=== PATIENT | female | born 1935 | race Two or more races ===

== ENCOUNTER 2021-09-22 01:22 | Inpatient (IN) | payer OTHER ==
[~2021-09-22] VITALS: Ht 152.4 cm; Wt 50.0 kg
[2021-09-22] MEDS ORDERED: HYDROcodone-ACET 5/325MG TAB PO ONE ×2 (03:45→13:15)
[2021-09-22] MEDS ORDERED: NITROGLYCERIN 0.4 MG SL TAB SL PRN ×2 (14:00→16:00)
[2021-09-22] MEDS ORDERED: MORPHINE SULFATE INJECTION 2 MG/ML SYRG IV PRN ×4 (14:00→16:00)
[2021-09-22] MEDS ORDERED: ONDANSETRON HCL 4 MG/2 ML VIAL IV PRN ×2 (14:00→16:00)
[2021-09-22 14:29] LABS: Basophils # (auto) 0.1 10 ^3/uL (0-0.2); Basophils % (auto) 0.5 % (0.0-2.0); Eosinophils # (auto) 0 10 ^3/uL (0-0.8); Hematocrit 25.4 % (36.0-46.0); Lymphocytes # (auto) 1.6 10 ^3/uL (0.4-5.4); Neutrophils # (auto) 10.4 10 ^3/uL (1.6-8.6)
[2021-09-22 14:30] LABS: Hemoglobin 8.1 g/dL (12.2-16.2); Mean Corpuscular Hemoglobin 22.9 pg (28.0-32.0); Mean Corpuscular Hgb Conc. 32.1 g/dL (32.0-36.0); Mean Corpuscular Volume 71.4 fL (80.0-100.0); Monocytes % (auto) 7.8 % (0.0-12.0); Neutrophils % (auto) 79.7 % (37.0-80.0); Nucleated Red Blood Cells % 0.1 %; Red Blood Cells 3.56 10^6/uL (4.0-5.20); White Blood Cell 13.1 10^3/uL (4.4-10.8)
[2021-09-22 14:55] LABS: BUN/Creatinine Ratio 68.8; Calcium 9.2 mg/dL (8.5-10.1); Potassium 3.4 mmol/L (3.5-5.1)
[2021-09-22 14:58] LABS: Bilirubin, Total 0.2 mg/dL (0.2-1.0); Total Protein 6.3 g/dL (6.4-8.2)
[2021-09-22 15:06] LABS: Magnesium 2.3 mg/dL (1.6-2.6)
[2021-09-22 15:12] LABS: Phosphorus 2.9 mg/dL (2.5-4.90)
[2021-09-22 15:36] LABS: Cholesterol 165 mg/dL (< 200)
[2021-09-22 15:39] LABS: HDL Cholesterol 41 mg/dL (40-59); LDL Cholesterol 93 mg/dL (< 100); Triglycerides 180 mg/dL (< 150)
[2021-09-22] MEDS ORDERED: FAMOTIDINE (10MG/ML) 2ML VL IV ONE (16:00)
[2021-09-22] MEDS ORDERED: METOPROLOL SUCCINATE XL 50 MG TAB PO ONE (16:00)
[2021-09-22] MEDS ORDERED: SODIUM CHLORIDE 0.9% 1,000 ML IV SCH (16:00)
[2021-09-22] MEDS ORDERED: ACETAMINOPHEN 325 MG TAB PO PRN (16:00)
[2021-09-22] MEDS ORDERED: POTASSIUM CHL 10MEQ/50ML 50 ML IV ONE (16:00)
[2021-09-22] MEDS ORDERED: DOCUSATE SOD 100 MG CAP PO PRN (16:00)
[2021-09-22] MEDS ORDERED: HYDROcodone-ACET 5/325MG TAB PO PRN (16:00)
[2021-09-22] MEDS ORDERED: hydrALAZINE HCL 20 MG/ML VL IV PRN ×2 (16:00→16:15)
[2021-09-22] MEDS ORDERED: LORazepam 0.5 MG TAB PO PRN (16:00)
[2021-09-22] MEDS ORDERED: ALUM & MAG HYDROX-SIMETH LIQ(MAALOX) 30 ML PO PRN (16:00)
[2021-09-22] MEDS ORDERED: CARISOPRODOL 350 MG TAB PO ONE (16:00)
[2021-09-22] MEDS ORDERED: IOHEXOL 350 MG/ML 100ML IJ ONE (16:01)
[2021-09-22] MEDS ORDERED: IPRATROPIUM BROM 0.5 MG/2.5ML INH SOL NEB ONE (16:15)
[2021-09-22] MEDS ORDERED: PANTOPRAZOLE 40 MG/10 ML VIAL INJ IV ONE (16:15)
[2021-09-22] MEDS ORDERED: cefTRIAXone 1GM/50ML D5W 50 ML IV ONE (16:15)
[2021-09-22] MEDS ORDERED: IPRATROPIUM BROM 0.5 MG/2.5ML INH SOL NEB PRN (16:15)
[2021-09-22 16:38] LABS: Urine Bacteria MANY /hpf (None Seen); Urine Blood TRACE /uL (Negative); Urine Mucus FEW (None Seen); Urine Specific Gravity 1.024 (1.001-1.035); Urine WBC 27 /hpf (0 - 5)
[2021-09-22] MEDS: CALCIUM W/VIT D (600MG/400IU) TAB PO SCH (18:00)
[2021-09-22 20:00] VITALS: BP 115/65
[2021-09-22] MEDS ORDERED: CARISOPRODOL 350 MG TAB PO PRN (22:00)
[2021-09-22] MEDS ORDERED: FAMOTIDINE (10MG/ML) 2ML VL IV SCH (22:00)
[2021-09-22] MEDS ORDERED: OME20T PO (22:10)
[2021-09-22] MEDS ORDERED: TRAM50TA2 PO (22:10)
[2021-09-22] MEDS ORDERED: ENAL2.5T7 PO (22:10)
[2021-09-22] MEDS ORDERED: [UNRECOGNIZED DRUG - CODE] IJ (22:10)
[2021-09-22 22:36] LABS: % Iron Saturation 3.7 % (15-50)
[2021-09-23 05:17] VITALS: BP 118/63
[2021-09-23 06:48] LABS: Basophils # (auto) 0 10 ^3/uL (0-0.2); Eosinophils # (auto) 0 10 ^3/uL (0-0.8); Monocytes # (auto) 0.9 10 ^3/uL (0-1.3); Red Blood Cells 2.81 10^6/uL (4.0-5.20)
[2021-09-23 06:51] LABS: Basophils % (auto) 0.2 % (0.0-2.0); Hematocrit 20.2 % (36.0-46.0); Lymphocytes # (auto) 1.3 10 ^3/uL (0.4-5.4); Lymphocytes % (auto) 11.5 % (10.0-50.0); Mean Corpuscular Hemoglobin 23.5 pg (28.0-32.0); Mean Corpuscular Hgb Conc. 32.7 g/dL (32.0-36.0); Mean Corpuscular Volume 71.7 fL (80.0-100.0); Monocytes % (auto) 8.1 % (0.0-12.0); Neutrophils # (auto) 8.7 10 ^3/uL (1.6-8.6); Neutrophils % (auto) 80.2 % (37.0-80.0); White Blood Cell 10.9 10^3/uL (4.4-10.8)
[2021-09-23 06:55] LABS: Albumin 2.6 g/dL (3.4-5.0); Calcium 8.8 mg/dL (8.5-10.1); INR 1.11 (0.9-1.15); Magnesium 2.4 mg/dL (1.6-2.6); Partial Thromboplastin Time 23.1 sec (23.6-33.0); Potassium 3.3 mmol/L (3.5-5.1)
[2021-09-23 06:57] LABS: Hemoglobin 6.6 g/dL (12.2-16.2); Red Cell Distribution Width 21.8 % (11.8-14.3)
[2021-09-23] MEDS: CALCIUM W/VIT D (600MG/400IU) TAB PO SCH ×2 (08:00→18:00)
[2021-09-23 08:43] LABS: BUN/Creatinine Ratio 68.6; Bilirubin, Total 0.2 mg/dL (0.2-1.0); Total Protein 5.3 g/dL (6.4-8.2); Uric Acid 3.3 mg/dL (2.6-6.0)
[2021-09-23] MEDS: METOPROLOL SUCCINATE XL 50 MG TAB PO SCH (10:00)
[2021-09-23] MEDS ORDERED: CALCIUM W/VIT D (600MG/400IU) TAB PO SCH (10:00)
[2021-09-23] MEDS: cefTRIAXone 1GM/50ML D5W 50 ML IV SCH (10:36)
[2021-09-23] MEDS: PANTOPRAZOLE 40 MG/10 ML VIAL INJ IV SCH ×2 (10:36→21:29)
[2021-09-23 12:35] LABS: Hematocrit 20.7 % (36.0-46.0)
[2021-09-23 12:40] LABS: Hemoglobin 6.8 g/dL (12.2-16.2)
[2021-09-23] MEDS ORDERED: POTASSIUM PHOSPHATE 26.4 MEQ in SODIUM CHL 0.9% 100 ML IV ONE (13:30)
[2021-09-23] MEDS ORDERED: ERGOCALCIFEROL 50,000 UNIT(1.25MG) CAP PO SCH (13:30)
[2021-09-23 16:00] VITALS: BP 129/59
[2021-09-23 17:13] VITALS: BP 112/41
[2021-09-23 17:30] VITALS: BP 105/47
[2021-09-23 20:27] VITALS: BP 92/75
[2021-09-23 22:05] LABS: Hematocrit 27.5 % (36.0-46.0)
[2021-09-24 02:35] LABS: Hematocrit 27.9 % (36.0-46.0)
[2021-09-24 08:00] VITALS: BP 134/92
[2021-09-24] MEDS: CALCIUM W/VIT D (600MG/400IU) TAB PO SCH ×2 (08:00→17:42)
[2021-09-24] MEDS: METOPROLOL SUCCINATE XL 50 MG TAB PO SCH (09:00)
[2021-09-24] MEDS: cefTRIAXone 1GM/50ML D5W 50 ML IV SCH (09:27)
[2021-09-24] MEDS: PANTOPRAZOLE 40 MG/10 ML VIAL INJ IV SCH ×2 (09:27→21:34)
[2021-09-24] MEDS ORDERED: LIDOCAINE 5% TOPICAL PATCH TOP ONE (10:30)
[2021-09-24 11:19] LABS: Basophils # (auto) 0 10 ^3/uL (0-0.2); Eosinophils # (auto) 0 10 ^3/uL (0-0.8); Eosinophils % (auto) 0.1 % (0.0-7.0); Nucleated Red Blood Cells % 0.3 %; White Blood Cell 9.3 10^3/uL (4.4-10.8)
[2021-09-24 11:21] LABS: Basophils % (auto) 0.4 % (0.0-2.0); Hematocrit 26.9 % (36.0-46.0); Lymphocytes # (auto) 1.3 10 ^3/uL (0.4-5.4); Lymphocytes % (auto) 14.1 % (10.0-50.0); Mean Corpuscular Hemoglobin 24.8 pg (28.0-32.0); Mean Corpuscular Hgb Conc. 33.6 g/dL (32.0-36.0); Monocytes # (auto) 0.7 10 ^3/uL (0-1.3); Monocytes % (auto) 7.5 % (0.0-12.0); Neutrophils # (auto) 7.3 10 ^3/uL (1.6-8.6); Neutrophils % (auto) 77.9 % (37.0-80.0); Red Blood Cells 3.65 10^6/uL (4.0-5.20); Red Cell Distribution Width 21.6 % (11.8-14.3)
[2021-09-24 11:27] LABS: Calcium 8.7 mg/dL (8.5-10.1); Potassium 3.7 mmol/L (3.5-5.1)
[2021-09-24] MEDS ORDERED: POTASSIUM PHOSPHATE 26.4 MEQ in SODIUM CHL 0.9% 100 ML IV ONE (11:30)
[2021-09-24] MEDS: SUCRALFATE 1 GM/10 ML ORAL SUSP PO SCH ×3 (12:17→21:38)
[2021-09-24 12:20] LABS: Mean Corpuscular Volume 73.7 fL (80.0-100.0)
[2021-09-24 13:00] VITALS: BP 136/55
[2021-09-25 05:00] VITALS: BP 153/73
[2021-09-25 06:43] LABS: Hematocrit 27.7 % (36.0-46.0)
[2021-09-25 07:01] LABS: BUN/Creatinine Ratio 52.6; Calcium 8.9 mg/dL (8.5-10.1)
[2021-09-25 08:19] VITALS: BP 147/62
[2021-09-25] MEDS: CALCIUM W/VIT D (600MG/400IU) TAB PO SCH ×2 (08:22→18:00)
[2021-09-25] MEDS: SUCRALFATE 1 GM/10 ML ORAL SUSP PO SCH ×3 (08:23→17:00)
[2021-09-25] MEDS: cefTRIAXone 1GM/50ML D5W 50 ML IV SCH (09:00)
[2021-09-25] MEDS ORDERED: POTASSIUM EFFERVESENT TAB 25 MEQ PO ONE (09:45)
[2021-09-25] MEDS ORDERED: LIDOCAINE 5% TOPICAL PATCH TOP SCH (10:00)
[2021-09-25] MEDS: PANTOPRAZOLE 40 MG/10 ML VIAL INJ IV SCH ×2 (10:00→10:05)
[2021-09-25] MEDS: METOPROLOL SUCCINATE XL 50 MG TAB PO SCH (10:06)
[2021-09-25] MEDS ORDERED: PANT40TA2 PO (10:11)
[2021-09-25] MEDS ORDERED: SUCR1SUS10 PO (10:11)
[2021-09-25] MEDS ORDERED: CALC600T80 PO (10:11)
[2021-09-25] MEDS ORDERED: METO-6 PO (10:11)
[2021-09-25] MEDS ORDERED: LEVO-28 PO (10:11)
[2021-09-25] MEDS ORDERED: ERGO1CAP23 PO (10:11)
== END 2021-09-25 18:46 | disposition hospice, home (50) | DRG 52 ==
LOC: ER 01:25 → OVERFLOW 13:51 → WEST WING 19:50 → TELE-WESTW 09-23 10:31
PROVIDERS: ADMIT Hospitalist; ATTEND Internal Medicine
PROC: 30233N1 Transfusion of Nonautologous Red Blood Cells into Peripheral Vein, Percutaneous Approach (ICD-10-PCS; principal; 2021-09-23)
DX: G93.41 Metabolic encephalopathy (principal); E43 Unspecified severe protein-calorie malnutrition; R62.7 Adult failure to thrive; F03.90 Unspecified dementia, unspecified severity, without behavioral disturbance, psychotic disturbance, mood disturbance, and anxiety; M48.56XA Collapsed vertebra, not elsewhere classified, lumbar region, initial encounter for fracture; N39.0 Urinary tract infection, site not specified; D50.0 Iron deficiency anemia secondary to blood loss (chronic); Z74.01 Bed confinement status; G89.4 Chronic pain syndrome; M81.0 Age-related osteoporosis without current pathological fracture; K44.9 Diaphragmatic hernia without obstruction or gangrene; D32.9 Benign neoplasm of meninges, unspecified; I10 Essential (primary) hypertension; K20.90 Esophagitis, unspecified without bleeding; Z20.822 Contact with and (suspected) exposure to COVID-19; B96.20 Unspecified Escherichia coli [E. coli] as the cause of diseases classified elsewhere; E55.9 Vitamin D deficiency, unspecified; K21.9 Gastro-esophageal reflux disease without esophagitis; K29.70 Gastritis, unspecified, without bleeding; M51.16 Intervertebral disc disorders with radiculopathy, lumbar region; J98.11 Atelectasis; E87.6 Hypokalemia; Z86.011 Personal history of benign neoplasm of the brain; Z68.22 Body mass index [BMI] 22.0-22.9, adult
CPT/HCPCS: 36415; 70450; 71045; 72128; 72131; 74176; 80048; 80053; 80061; 81001; 82306; 82607; 82746; 83036; 83540; 83550; 83735; 83880; 84100; 84443; 84484; 84550; 85014; 85018; 85025; 85379; 85610; 85730; 86850; 86900; 86901; 86920; 87040; 87086; 87088; 87186; 87426; 93005; 93306; 93886; 96361; 96365; 96375; C9113; G0378; J0696